=== PATIENT | female | born 1970 | race American Indian/Alaskan Native ===

== ENCOUNTER 2016-10-11 16:58 | Inpatient (IN) | payer OTHER ==
[2016-10-11 18:29] LABS: Basophils % (Auto) 0.8 % (0.0-1.8); Eosinophils % (Auto) 2.5 % (0.0-4.3); Mean Corpuscular HGB Conc 32 % (30-34); Mean Corpuscular Volume 80 fl (79-97); Platelet Count 319 K/mm3 (140-440); Red Blood Count 5.11 M/mm3 (3.65-5.03); Red Cell Distribution Width 15.7 % (13.2-15.2); White Blood Count 7.9 K/mm3 (4.5-11.0)
[2016-10-11 18:31] LABS: Mean Corpuscular Hemoglobin 26 pg (28-32)
[2016-10-11 18:36] LABS: Anion Gap 9 mmol/L; BUN/Creatinine Ratio 13.75; Blood Urea Nitrogen 11 mg/dL (7-17); Calcium 8.8 mg/dL (8.4-10.2); Carbon Dioxide 35 mmol/L (22-30); Chloride 98.6 mmol/L (98-107); Glucose 101 mg/dL (65-100); Potassium 4.4 mmol/L (3.6-5.0); Sodium 138 mmol/L (137-145)
[2016-10-11 18:57] LABS: Cholesterol 154 mg/dL (50-199); HDL Cholesterol 44 mg/dL (40-59); LDL Cholesterol,Direct 85 mg/dL (50-130); Triglycerides 125 mg/dL (2-149)
[2016-10-11] MEDS ORDERED: BABY ASPIRIN PO ONE (22:13)
--- NOTE | 2016-10-11 22:15 | Emergency Department Report ---
ED Chest Pain HPI - General Chief Complaint: Chest Pain Stated Complaint: CHEST PAIN /RT ARM NUMB Time Seen by Provider: 10/11/16 21:53 Source: patient Mode of arrival: Ambulatory Limitations: No Limitations - History of Present Illness Initial Comments: 46-year-old female presents to the emergency department complaining of chest pain. Patient states that 2 days ago she had some heaviness in her chest and could feel her heart beating in her throat. This resolved spontaneously. She states the symptoms returned last night at approximately 2 AM and were worse. She states that her right arm was feeling numb. She reports some nausea and diaphoresis. At this time, she is continuing to complain of tightness in her chest, which she states is similar to her asthma. There are no other complaints. MD Complaint: chest pain -: Gradual, days(s) (2) Onset: during rest Pain Location: substernal Pain Radiation: none Severity: moderate Severity scale (0 -10): 5 Quality: heaviness Consistency: intermittent Improves With: nothing Worsens With: nothing re: nausea, diaphoresis, dyspnea Treatments Prior to Arrival: none Aspirin use within the Past 7 Days: (0) No - Related Data Previous Rx's Medication Instructions Recorded Last Taken Type Benzonatate [Tessalon Perles] 200 mg PO Q8HR PRN #15 capsule 10/28/14 Unknown Rx Fluticasone [Flonase] 1 spray NS QDAY #1 bottle 10/28/14 08/21/15 Rx ALBUTEROL Inhaler [ProAir HFA 2 puff IH QID PRN #1 inha 08/21/15 Unknown Rx Inhaler] Albuterol *Only Ed* [Proventil 2.5 mg IH Q4H PRN #1 box 08/21/15 Unknown Rx 0.5% NEBS] predniSONE [Deltasone] 40 mg PO QDAY #10 tab 08/21/15 Unknown Rx Allergies Allergy/AdvReac Type Severity Reaction Status Date / Time lactose Allergy Hives Verified 10/11/16 17:44 shellfish derived Allergy Hives Verified 10/11/16 17:44 Heart Score - HEART Score History: Moderately suspicious EKG: Non-specific Age: 45-65 Risk factors: > 3 risk factors or hx of atherosclerotic disease Troponin: > 3x normal limit HEART Score: 7 ED Review of Systems ROS: Stated complaint: CHEST PAIN /RT ARM NUMB Other details as noted in HPI Comment: All other systems reviewed and negative Constitutional: diaphoresis Respiratory: shortness of breath Cardiovascular: chest pain Gastrointestinal: nausea ED Past Medical Hx - Past Medical History Previous Medical History?: Yes Hx Hypertension: Yes (NO MEDICATIONS NOW) Hx Diabetes: Yes (BORDERLINE) Hx Asthma: Yes Additional medical history: Bronchitis - Surgical History Past Surgical History?: Yes Additional Surgical History: PARTIAL HYSTERECTOMY. CYST REMOVED LEFT WRIST - Family History Family history: CAD/VA, diabetes, hypertension - Social History Smoking Status: Never Smoker Substance Use Type: Alcohol - Medications Home Medications: Home Medications Medication Instructions Recorded Confirmed Last Taken Type Benzonatate [Tessalon Perles] 200 mg PO Q8HR PRN #15 capsule 10/28/14 08/21/15 Unknown Rx Fluticasone [Flonase] 1 spray NS QDAY #1 bottle 10/28/14 08/21/15 08/21/15 Rx ALBUTEROL Inhaler [ProAir HFA 2 puff IH QID PRN #1 inha 08/21/15 Unknown Rx Inhaler] Albuterol *Only Ed* [Proventil 2.5 mg IH Q4H PRN #1 box 08/21/15 Unknown Rx 0.5% NEBS] predniSONE [Deltasone] 40 mg PO QDAY #10 tab 08/21/15 Unknown Rx ED Physical Exam - General Limitations: No Limitations General appearance: alert, in no apparent distress - Head Head exam: Present: atraumatic, normocephalic - Eye Eye exam: Present: normal appearance, PERRL, EOMI - ENT ENT exam: Present: normal exam, normal orophraynx, mucous membranes moist - Neck Neck exam: Present: normal inspection, full ROM. Absent: tenderness - Respiratory Respiratory exam: Present: normal lung sounds bilaterally. Absent: respiratory distress - Cardiovascular Cardiovascular Exam: Present: regular rate, normal rhythm, normal heart sounds - GI/Abdominal GI/Abdominal exam: Present: soft, normal bowel sounds. Absent: distended, tenderness - Extremities Exam Extremities exam: Present: normal inspection, full ROM. Absent: tenderness - Back Exam Back exam: Present: normal inspection, full ROM. Absent: tenderness - Neurological Exam Neurological exam: Present: alert, oriented X3. Absent: motor sensory deficit - Skin Skin exam: Present: warm, dry, intact ED Course Vital Signs 10/11/16 17:34 Temperature 98.0 F Pulse Rate 62 Respiratory 17 Rate Blood Pressure 153/93 O2 Sat by Pulse 100 Oximetry ED Medical Decision Making - Lab Data Result diagrams: 10/11/16 18:01 10/11/16 18:01 - EKG Data -: EKG Interpreted by Me EKG shows normal: sinus rhythm, axis, intervals, QRS complexes Rate: normal - EKG Data When compared to previous EKG there are: previous EKG unavailable Interpretation: other (T-wave inversions in inferior leads) - Medical Decision Making Lab results reviewed and discussed with the patient. Patient has a troponin that is 10 times the upper limit of normal. I have spoken with Dr. Ran Bailey, cardiology. Patient has been given aspirin. She will be started on IV heparin. Patient is to be admitted by the hospitalist. - Differential Diagnosis ACS, Chest wall pain, GERD Critical care attestation.: If time is entered above; I have spent that time in minutes in the direct care of this critically ill patient, excluding procedure time. ED Disposition Clinical Impression: NSTEMI (non-ST elevated myocardial infarction) Disposition: 09 OP ADMIT IP TO THIS HOSP Is pt being admited?: Yes Condition: Stable Referrals: PRIMARY CARE, [Primary Care Provider] - 3-5 Days Time of Disposition: 22:23
[2016-10-11] MEDS ORDERED: HEPARIN 10,000 UNITS/10 ML IV ONE (22:20)
[2016-10-11] MEDS ORDERED: HEPARIN/ 0.45% NACL-25,000 UNIT/500 ML 25,000 UNIT/500 ML BAG IV SCH (23:00)
[2016-10-11 23:22] LABS: INR 1.23 (0.87-1.13)
[2016-10-11] MEDS ORDERED: MORPHINE IV PRN (23:23)
[2016-10-11] MEDS ORDERED: TYLENOL PO PRN (23:24)
[2016-10-11] MEDS ORDERED: ZOFRAN IV PRN (23:24)
[2016-10-12 00:23] LABS: Partial Thromboplastin Time > 240.0 Sec. (24.2-36.6)
--- NOTE | 2016-10-12 05:26 | History and Physical Report ---
History of Present Illness Date of examination: 10/11/16 Date of admission: 10/11/16 22:24 Chief complaint: Chief complaint is chest pain History of present illness: History of present illness, patient is a 46-year-old female who states she's been having sharp chest pain in the substernal and precordial area going on for few days but became worse in the last 24 hours prior to presentation, patient said the pain radiates to the left hour and was associated with shortness of breath, diaphoresis, nausea but no vomiting. Pain was relieved with pain medication and nitroglycerin, there was no history of dizziness no history of cough fever or chills Past History Past Medical History: diabetes, hypertension, other (ASTHMA,BRONCHITIS) Past Surgical History: hysterectomy, Other (CYST REMOVAL LEFT WRIST) Family history: CAD, diabetes, hypertension Medications and Allergies Allergies Allergy/AdvReac Type Severity Reaction Status Date / Time lactose Allergy Hives Verified 10/11/16 17:44 shellfish derived Allergy Hives Verified 10/11/16 17:44 Home Medications Medication Instructions Recorded Confirmed Last Taken Type Benzonatate [Tessalon Perles] 200 mg PO Q8HR PRN #15 capsule 10/28/14 10/12/16 10/11/16 Rx Fluticasone [Flonase] 1 spray NS QDAY #1 bottle 10/28/14 10/12/16 10/11/16 Rx ALBUTEROL Inhaler [ProAir HFA 2 puff IH QID PRN #1 inha 08/21/15 10/12/16 Rx Inhaler] Albuterol *Only Ed* [Proventil 2.5 mg IH Q4H PRN #1 box 08/21/15 10/12/1610/11 Rx 0.5% NEBS] predniSONE [Deltasone] 40 mg PO QDAY #10 tab 08/21/15 10/12/16 10/11/16 Rx Active Meds: Active Medications Acetaminophen (Tylenol) 650 mg PO Q4H PRN PRN Reason: For Pain/Fever/Headache Aspirin (Aspirin) 325 mg PO QDAY ANASTASIA Heparin Sodium/Sodium Chloride (Heparin/ 0.45% Nacl-25,000 Unit/500 Ml) 25,000 unit in 500 mls @ 20 mls/hr IV TITRATE ANASTASIA; 1,000 UNITS/HR PRN Reason: Protocol Last Admin: 10/11/16 22:54 Dose: 1,000 units/hr, 20 mls/hr Morphine Sulfate (Morphine) 2 mg IV Q3H PRN PRN Reason: Pain, Moderate (4-6) Nitroglycerin (Nitro-Bid 2%) 1 inch TP QIDNTG [facility] PRN Reason: Protocol Ondansetron HCl (Zofran) 4 mg IV Q8H PRN PRN Reason: Nausea And Vomiting Pneumococcal Polyvalent Vaccine (Pneumovax 23) 0.5 ml IM .ONCE ONE Stop: 10/12/16 12:01 Review of Systems Constitutional: no weight loss, no weight gain, no fever, no chills, no sweats, no weakness, no poor appetite Eyes: bilateral: other (NO BILATERAL EYE SYMPTOMS) Ears, nose, mouth and throat: no ear pain, no ear discharge, no tinnitis, no decreased hearing, no nose pain, no nasal congestion, no nasal discharge, no sinus pressure, no sinus pain, no bleeding gums, no dental pain, no mouth pain, no dysphagia, no hoarseness, no sore throat, no swelling in mouth, no swelling in throat, no post-nasal drip, no headache, no vertigo, no pain front of neck, no neck fullness/pressure Breasts: deferred Cardiovascular: chest pain, shortness of breath, high blood pressure, no orthopnea, no palpitations, no rapid/irregular heart beat, no edema, no syncope , no lightheadedness, no dyspnea on exertion, no paroxysmal nocturnal dyspnea, no claudication, no leg edema, no decreased exercise tolerance Respiratory: shortness of breath, no cough, no cough with sputum, no excessive sputum, no hemoptysis, no congestion, no wheezing, no pleurisy, no pain on inspiration, no sleep apnea, no respiratory infections Gastrointestinal: nausea, no vomiting, no diarrhea, no constipation, no change in bowel habits, no melena, no hematochezia, no loss of appetite, no early satiety, no heartburn, no jaundice, no dyspepsia/bloating, no early satiety Genitourinary Female: no dyspareunia, no pelvic pain, no flank pain, no menorrhagia, no dysuria, no urinary frequency, no urgency, no stress incontinence, no post void dribbling, no incomplete emptying, no urge incontinence, no mixed incontinence, no vaginal itching, no vaginal discharge, no vaginal odor, no abnormal vaginal bleeding, no genital sores, no vaginal dryness, no decreased libido, no mood problems, no Menstruation: no postmenopausal Rectal: no pain, no incontinence, no hemorrhoids, no flatulence Musculoskeletal: no neck stiffness, no neck pain, no low back pain, no shooting leg pain, no morning stiffness, no muscle weakness, no muscle cramps, no fractures, no loss of height, no prior amputations Integumentary: no rash, no pruritis, no redness, no sores, no wounds, no bullae , no lesions, no darkening of skin, no depigmentation, no acne, no dryness, no change in hair/nails, no brittle nails, no striae, no hirsutism, no foot/leg ulcers, no onychomycosis Neurological: no head injury, no transient paralysis, no paralysis, no parathesias, no numbness, no tingling, no seizures, no syncope, no ataxia, no headaches, no migraines, no convulsions, no aphasia, no change in speech, no change in mentation, no confusion, no memory loss, no motor disturbance, no sensory deficit, no double vision, no loss of vision, no hearing difficulties, no burning pain Psychiatric: no memory loss, no sleep disturbances, no insomnia, no hypersomnia , no change in appetite, no change in libido, no suicidal ideation, no disorientation, no depression, no hopelessness, no anhedonia, no anxiety attacks , no difficulties concentrating, no confusion, no irritability Endocrine: high blood sugars, no cold intolerance, no heat intolerance, no polyphagia, no excessive thirst, no polydipsia, no polyuria, no excessive sweating, no thyroid mass Hematologic/Lymphatic: no easy bruising, no easy bleeding, no lymphadenopathy, no lymphedema, no thrombophilia Allergic/Immunologic: no urticaria, no allergic rhinitis, no persistent infections, no anaphylaxis, no gluten intolerance, no seasonal allergies Exam - Constitutional Vitals: Temp Pulse Resp BP Pulse Ox 98.0 F 64 20 127/99 100 10/12/16 00:06 10/12/16 00:06 10/12/16 01:04 10/12/16 00:06 10/12/16 00:06 General appearance: Present: no acute distress - EENT Eyes: Present: PERRL, EOM intact. Absent: scleral icterus, miosis ENT: hearing intact, clear oral mucosa, no oropharyngeal erythema, no edentulous - Neck Neck: Present: supple, normal ROM. Absent: enlarged thyroid, carotid bruits - Respiratory Respiratory effort: normal - Cardiovascular Rhythm: regular Heart Sounds: Present: S1 & S2. Absent: gallop, systolic murmur, diastolic murmur, rub, click - Extremities Extremities: no ischemia, No edema Peripheral Pulses: within normal limits - Abdominal General gastrointestinal: Present: soft, non-tender, non-distended. Absent: tender, distended, rigid, absent bowel sounds, splenomegaly Female genitourinary: Present: deferred - Rectal Rectal Exam: deferred - Integumentary Integumentary: Present: clear, warm, dry, normal turgor. Absent: erythema, jaundice, clammy - Musculoskeletal Musculoskeletal: strength equal bilaterally - Psychiatric Psychiatric: appropriate mood/affect - Neurologic Neurologic: CNII-XII intact Results - Labs CBC & Chem 7: 10/11/16 18:01 10/11/16 18:01 Labs: Laboratory Last Values WBC 7.9 K/mm3 (4.5-11.0) 10/11/16 18:01 RBC 5.11 M/mm3 (3.65-5.03) H 10/11/16 18:01 Hgb 13.0 gm/dl (10.1-14.3) 10/11/16 18:01 Hct 41.0 % (30.3-42.9) 10/11/16 18:01 MCV 80 fl (79-97) 10/11/16 18:01 MCH 26 pg (28-32) L 10/11/16 18:01 MCHC 32 % (30-34) 10/11/16 18:01 RDW 15.7 % (13.2-15.2) H 10/11/16 18:01 Plt Count 319 K/mm3 (140-440) 10/11/16 18:01 Lymph % (Auto) 26.9 % (13.4-35.0) 10/11/16 18:01 [place] % (Auto) 7.3 % (0.0-7.3) 10/11/16 18:01 Eos % (Auto) 2.5 % (0.0-4.3) 10/11/16 18:01 Baso % (Auto) 0.8 % (0.0-1.8) 10/11/16 18:01 Lymph # 2.1 K/mm3 (1.2-5.4) 10/11/16 18:01 [place] # 0.6 K/mm3 (0.0-0.8) 10/11/16 18:01 Eos # 0.2 K/mm3 (0.0-0.4) 10/11/16 18:01 Baso # 0.1 K/mm3 (0.0-0.1) 10/11/16 18:01 Seg Neutrophils % 62.5 % (40.0-70.0) 10/11/16 18:01 Seg Neutrophils # 5.0 K/mm3 (1.8-7.7) 10/11/16 18:01 PT 15.4 Sec. (12.2-14.9) H 10/11/16 22:51 INR 1.23 (0.87-1.13) H 10/11/16 22:51 APTT > 240.0 Sec. (24.2-36.6) H* 10/11/16 22:51 Heparin Anti-Xa Level 0.28 U.I./ml (0.3-0.7) L 10/12/16 04:20 Sodium 138 mmol/L (137-145) 10/11/16 18:01 Potassium 4.4 mmol/L (3.6-5.0) 10/11/16 18:01 Chloride 98.6 mmol/L (98-107) 10/11/16 18:01 Carbon Dioxide 35 mmol/L (22-30) H 10/11/16 18:01 Anion Gap 9 mmol/L 10/11/16 18:01 BUN 11 mg/dL (7-17) 10/11/16 18:01 Creatinine 0.8 mg/dL (0.7-1.2) 10/11/16 18:01 Estimated GFR > 60 ml/min 10/11/16 18:01 BUN/Creatinine Ratio 13.75 % 10/11/16 18:01 Glucose 101 mg/dL (65-100) H 10/11/16 18:01 Calcium 8.8 mg/dL (8.4-10.2) 10/11/16 18:01 Troponin T 0.341 ng/mL (0.00-0.029) H* D 10/11/16 22:51 Triglycerides 125 mg/dL (2-149) 10/11/16 18:01 Cholesterol 154 mg/dL (50-199) 10/11/16 18:01 LDL Cholesterol Direct 85 mg/dL (50-130) 10/11/16 18:01 HDL Cholesterol 44 mg/dL (40-59) 10/11/16 18:01 Cholesterol/HDL Ratio 3.50 % 10/11/16 18:01 Assessment and Plan - Patient Problems (1) Diabetes Current Visit: Yes Status: Acute Qualifiers: Diabetes mellitus type: D Diabetes mellitus complication status: D Diabetes mellitus complication detail: D Diabetic retinopathy severity: D Proliferative retinopathy type: P Diabetes mellitus macular edema: D Diabetes mellitus long-term insulin use: D Laterality: L Chronic kidney disease stage: C (2) NSTEMI (non-ST elevated myocardial infarction) Current Visit: Yes Status: Acute Plan to address problem: Patient will be admitted to medical floor on telemetry I will have cardiac enzyme troponin checked 6 hours after the last level, patient will continue IV heparin started in the emergency room and will also continue cardiology consult with Dr. Bailey as requested by the emergency room doctor. Patient will be on Nitropaste one inch to anterior chest wall every 6 hours and will be on IV morphine 2 mg every 3 hours as needed for pain and IV Zofran 4 mg every 6 hours for nausea vomiting, patient will also be on Tylenol by mouth 650 mg every 4 hours for fever and headache and will be on oxygen by nasal cannula at a rate of 2 L/m
[2016-10-12] MEDS: NITRO-BID 2% TP SCH ×2 (08:10→12:12)
[2016-10-12] MEDS ORDERED: ASPIRIN PO SCH (10:00)
--- NOTE | 2016-10-12 10:27 | Consultation ---
History of Present Illness Consult date: 10/12/16 Requesting physician: ERAN SURESH Consult reason: abnormal cardiac enzymes History of present illness: The patient is a 46 YO female with a past medical history significant for HTN and asthma. She is previously unknown to our practice. Her P[facility] is with [facility]. She presented with c/o palpitations, "heart pounding", and chest pain since Saturday AM. Her symptoms have been intermittent since Saturday with no clear precipitating, aggravating, or alleviating factors. She describer her chest pain as a left-sided sharp pain which is nonexertional and nonradiating. The pain is sometimes aggravated by palpation of the chest wall and sometimes associated with mild SOB. She denies any fever, chills, cough, n/v, diaphoresis or syncope. She does admit to one episode of dizziness while bending over at work on Saturday. On evaluation, she reports that her chest pain has nearly resolved. She reports a history of HTN but reports that her PCP took her off of her anti-hypertensive regimen 4 months ago after her BP was noted to be controlled. Past History Past Medical History: hypertension, other (asthma) Past Surgical History: hysterectomy (partial), Other (CYST REMOVAL LEFT WRIST) Family history: diabetes, hypertension, other (sarcoidosis ) Medications and Allergies Allergies Allergy/AdvReac Type Severity Reaction Status Date / Time lactose Allergy Hives Verified 10/11/16 17:44 shellfish derived Allergy Hives Verified 10/11/16 17:44 Home Medications Medication Instructions Recorded Confirmed Last Taken Type Benzonatate [Tessalon Perles] 200 mg PO Q8HR PRN #15 capsule 10/28/14 10/12/16 10/11/16 Rx Fluticasone [Flonase] 1 spray NS QDAY #1 bottle 10/28/14 10/12/16 10/11/16 Rx ALBUTEROL Inhaler [ProAir HFA 2 puff IH QID PRN #1 inha 08/21/15 10/12/16 Rx Inhaler] Albuterol *Only Ed* [Proventil 2.5 mg IH Q4H PRN #1 box 08/21/15 10/12/1610/11 Rx 0.5% NEBS] predniSONE [Deltasone] 40 mg PO QDAY #10 tab 05/10/12/16 10/11/16 Rx Active Meds: Active Medications Acetaminophen (Tylenol) 650 mg PO Q4H PRN PRN Reason: For Pain/Fever/Headache Aspirin (Aspirin) 325 mg PO QDAY ANASTASIA Heparin Sodium/Sodium Chloride (Heparin/ 0.45% Nacl-25,000 Unit/500 Ml) 25,000 unit in 500 mls @ 20 mls/hr IV TITRATE ANASTASIA; 1,000 UNITS/HR PRN Reason: Protocol Last Titration: 10/12/16 05:25 Dose: 1,100 units/hr, 22 mls/hr Morphine Sulfate (Morphine) 2 mg IV Q3H PRN PRN Reason: Pain, Moderate (4-6) Nitroglycerin (Nitro-Bid 2%) 1 inch TP QIDNTG ANASTASIA PRN Reason: Protocol Last Admin: 10/12/16 08:10 Dose: Not Given Ondansetron HCl (Zofran) 4 mg IV Q8H PRN PRN Reason: Nausea And Vomiting Pneumococcal Polyvalent Vaccine (Pneumovax 23) 0.5 ml IM .ONCE ONE Stop: 10/12/16 12:01 Review of Systems Constitutional: no weight loss, no weight gain, no fever, no chills, no sweats Ears, nose, mouth and throat: no ear pain, no nose pain, no sinus pressure, no sinus pain Cardiovascular: chest pain, palpitations, rapid/irregular heart beat, lightheadedness, shortness of breath, no orthopnea, no syncope, no dyspnea on exertion, no paroxysmal nocturnal dyspnea, no leg edema Respiratory: shortness of breath, no cough, no dyspnea on exertion, no congestion, no wheezing, no pain on inspiration Gastrointestinal: no abdominal pain, no nausea, no vomiting, no diarrhea, no constipation, no change in bowel habits Genitourinary Female: no pelvic pain, no flank pain, no dysuria, no urinary frequency, no urgency Musculoskeletal: no neck stiffness, no neck pain, no shooting arm pain, no arm numbness/tingling, no low back pain, no shooting leg pain, no leg numbness/ tingling, no redness of joints Integumentary: no rash, no pruritis, no redness, no sores, no wounds Neurological: no head injury, no paralysis, no weakness, no parathesias, no numbness, no tingling, no seizures, no syncope Psychiatric: no anxiety Endocrine: no cold intolerance, no heat intolerance Hematologic/Lymphatic: no easy bruising, no easy bleeding, no lymphadenopathy Allergic/Immunologic: no urticaria, no wheezing, no persistent infections Physical Examination Vital Signs Temp Pulse Resp BP Pulse Ox 98.0 F 62 17 153/93 100 10/11/16 17:34 10/11/16 17:34 10/11/16 17:34 10/11/16 17:34 10/11/16 17:34 General appearance: no acute distress HEENT: Positive: PERRL, Normocephaly, Mucus Membranes Moist Neck: Positive: neck supple, trachea midline Cardiac: Positive: Reg Rate and Rhythm, S1/S2 Lungs: Positive: Normal Exam, clear to auscultation, Normal Breath Sounds Neuro: Positive: Grossly Intact, Cranial Nerve 2-12 Intact Abdomen: Positive: Unremarkable, Soft, Active Bowel Sounds. Negative: Tender Skin: Positive: Clear. Negative: Rash, Wound Musculoskeletal: No Fluid Collection, No Pain, Normal Range of Motion Extremities: Absent: edema Results 10/11/16 18:01 10/11/16 18:01 Coagulation 10/11/16 Range/Units 22:51 PT 15.4 H (12.2-14.9) Sec. INR 1.23 H (0.87-1.13) APTT > 240.0 H* (24.2-36.6) Sec. - Imaging and Cardiology Echo: pending EKG: report reviewed, image reviewed EKG interpretations - Telemetry EKG Rhythm: Sinus Rhythm - EKG Sinus rhythms and dysrhythmias: sinus rhythm Repolarization changes or abnormalities: nonspecific abnormality, ST segment, and/or T wave Assessment and Plan Assessment: Chest pain, atypical - ECG with NAF NSTEMI type II Palpitations - no arrhythmias noted on tele thus far HTN Asthma Obesity Plan: Cont heparin gtt and ASA 325. Obtain echo. Cont to trend Zee. Obtain DDimer. Obtain CXR. Obtain thyroid panel in AM. Repeat EKG in AM. Cont tele. Plan for lexiscan MPI stress test in AM. NPO after MN. Assessment and plan reviewed with pt at bedside. The patient has been seen in conjunction with Dr. Jones who agrees with the assessment and plan of care.
--- NOTE | 2016-10-12 11:06 | XRay Report ---
CHEST ONE VIEW INDICATION: Asthma. COMPARISON: None similar at this institution. FINDINGS: Portable, single, frontal chest radiograph demonstrates normal cardiomediastinal silhouette. Clear lungs. Unremarkable bones. Extrinsic EKG leads. CONCLUSION: No acute disease in the chest. Thank you for the opportunity to participate in this patient's care.
--- NOTE | 2016-10-12 11:09 | Progress Note ---
Hospitalist Physical - Constitutional Vitals: Temp Pulse Resp BP Pulse Ox 98.0 F 99 H 16 129/77 99 10/12/16 10:50 10/12/16 10:50 10/12/16 10:50 10/12/16 10:50 10/12/16 10:50 General appearance: Present: no acute distress Results - Labs CBC & Chem 7: 10/11/16 18:01 10/11/16 18:01 Labs: Laboratory Last Values WBC 7.9 K/mm3 (4.5-11.0) 10/11/16 18:01 RBC 5.11 M/mm3 (3.65-5.03) H 10/11/16 18:01 Hgb 13.0 gm/dl (10.1-14.3) 10/11/16 18:01 Hct 41.0 % (30.3-42.9) 10/11/16 18:01 MCV 80 fl (79-97) 10/11/16 18:01 MCH 26 pg (28-32) L 10/11/16 18:01 MCHC 32 % (30-34) 10/11/16 18:01 RDW 15.7 % (13.2-15.2) H 10/11/16 18:01 Plt Count 319 K/mm3 (140-440) 10/11/16 18:01 Lymph % (Auto) 26.9 % (13.4-35.0) 10/11/16 18:01 [place] % (Auto) 7.3 % (0.0-7.3) 10/11/16 18:01 Eos % (Auto) 2.5 % (0.0-4.3) 10/11/16 18:01 Baso % (Auto) 0.8 % (0.0-1.8) 10/11/16 18:01 Lymph # 2.1 K/mm3 (1.2-5.4) 10/11/16 18:01 [place] # 0.6 K/mm3 (0.0-0.8) 10/11/16 18:01 Eos # 0.2 K/mm3 (0.0-0.4) 10/11/16 18:01 Baso # 0.1 K/mm3 (0.0-0.1) 10/11/16 18:01 Seg Neutrophils % 62.5 % (40.0-70.0) 10/11/16 18:01 Seg Neutrophils # 5.0 K/mm3 (1.8-7.7) 10/11/16 18:01 PT 15.4 Sec. (12.2-14.9) H 10/11/16 22:51 INR 1.23 (0.87-1.13) H 10/11/16 22:51 APTT > 240.0 Sec. (24.2-36.6) H* 10/11/16 22:51 D-Dimer 145.19 ng/mlDDU (0-234) 10/12/16 09:54 Heparin Anti-Xa Level 0.28 U.I./ml (0.3-0.7) L 10/12/16 04:20 Sodium 138 mmol/L (137-145) 10/11/16 18:01 Potassium 4.4 mmol/L (3.6-5.0) 10/11/16 18:01 Chloride 98.6 mmol/L (98-107) 10/11/16 18:01 Carbon Dioxide 35 mmol/L (22-30) H 10/11/16 18:01 Anion Gap 9 mmol/L 10/11/16 18:01 BUN 11 mg/dL (7-17) 10/11/16 18:01 Creatinine 0.8 mg/dL (0.7-1.2) 10/11/16 18:01 Estimated GFR > 60 ml/min 10/11/16 18:01 BUN/Creatinine Ratio 13.75 % 10/11/16 18:01 Glucose 101 mg/dL (65-100) H 10/11/16 18:01 Calcium 8.8 mg/dL (8.4-10.2) 10/11/16 18:01 Total Creatine Kinase 455 units/L (30-135) H 10/12/16 09:54 CK-MB (CK-2) 18.0 ng/mL (0.0-4.0) H 10/12/16 09:54 CK-MB (CK-2) Rel Index 3.9 (0-4) 10/12/16 09:54 Troponin T 0.234 ng/mL (0.00-0.029) H* 10/12/16 09:54 Triglycerides 125 mg/dL (2-149) 10/11/16 18: Cholesterol 154 mg/dL (50-199) 10/11/16 18:01 LDL Cholesterol Direct 85 mg/dL (50-130) 10/11/16 18: HDL Cholesterol 44 mg/dL (40-59) 10/11/16 18: Cholesterol/HDL Ratio 3.50 % 10/11/16 18:01
[2016-10-12] MEDS ORDERED: LEXISCAN IV ONE ×2 (11:50→11:54)
[2016-10-12] MEDS ORDERED: PNEUMOVAX 23 IM ONE (12:00)
--- NOTE | 2016-10-12 12:12 | Admit Criteria Form ---
Admission Criteria Documentation: MYOCARDIAL INFARCTION Clinical Indications for Admission to Inpatient Care (Place 'X' for any and all applicable criteria): Admission is indicated for 1 or more of the following (1)(2)(3)(4): [ X]I. Acute FL [ ]II. Contraindications and/or Inappropriate clinical situations for Observational Care in patients with Myocardial Infarction, when ANY ONE of the following is required: [ ]a) Patient with High risk of cardiac embolism (e.g, patients with previous cardiac embolism, LVEF < 40%, age >75 and patients with prosthetic valve) 18 [ ]b) Patient with Moderate risk including DM patient, CAD and patient aged 65-75 18 [ ]c) Patient with any change in cardiac biomarker especially troponin should be managed as high risk in an inpatient setting 19 [ ]d) Physician judgement irrespective of ECG and other diagnostic findings 20 [ ]III.General contraindications and/or Inappropriate clinical situations for Observational Care in patients with Myocardial Infarction, when ANY ONE of the following is required: [ ]a) Prediction of prolongation of LOS based on ANY ONE of the following may be considered as a contraindication for observational care 2, 3, 4, 5, 6, 7, 8, 9, 10, 11 [ ]i) Age > 65 yrs. [ ]ii) Patient arriving by ambulance [ ]iii) Patient with high acuity [ ]iv) Patient requiring vital sign monitoring [ ]v) Patient on IV medication [ ]b) Systolic blood pressures greater than or equal to 180mmHg 3,12 [ ]c) Patient with altered mental status including delirium and other alteration of consciousness, (3) [ ]d) Patient whose discharge disposition will be to a [facility] home or rehabilitation home should not be managed in Emergency Department Observation Unit. CMS rule requires 3 days hospital stay before such placement. 3,13 [ ]e) Patient with failure to thrive due to broad array of etiologies 3 ,16,17 [ ]f) Inability to ambulate 3,14 Extended stay beyond goal length of stay may be needed for (1)(18)(20)(24)(25): [ ]a) Hemodynamic instability, persisting symptoms after intensive medical management, or recurring severe, prolonged symptoms [ ]b) Intravascular procedural complications such as acute vessel closure, stent thrombosis, stent malposition, or vessel dissection (26)(27)(28) [ ]c) Extravascular procedural complications such as retroperitoneal hematoma , pericardial effusion, or cardiac tamponade [ ]d) Entry site complications causing bleeding, hematoma or distal ischemia and requiring ongoing monitoring, surgical repair or surgical thrombectomy. Dangerous arrhythmia [ ]e) Complicated percutaneous coronary intervention (e.g., unsuccessful percutaneous coronary intervention or percutaneous coronary intervention of non- viejas vessel) [ ]f) Urgent or emergent surgery for complications of FL (e.g., ventricular rupture, valvular insufficiency) [ ]g) Surgical revascularization via coronary artery bypass graft [ ]h) Heart failure (e.g., pulmonary edema) [ ]i) Unstable pulmonary comorbidities, including COPD or pneumonia (31) [ ]j) Acute renal failure The original [employer] content created by [email or web address] has been revised. The portions of the content which have been revised are identified through the use of italic text or in bold, and [email or web address] has neither reviewed nor approved the modified material. All other unmodified content is copyright [email or web address] Please see references footnoted in the original [facility] edition 2016 Admission Criteria Met: Yes
[2016-10-12 12:42] VITALS: BP 128/81
--- NOTE | 2016-10-12 13:57 | Event Note ---
Date: 10/12/16 Stress mpi: 1. no evidence of a significant reversible perfusion defect 2. EF 63% Currently stable cardiac status. Initiate lopressor in setting of palpitations. Pt may discharge home from cardiology standpoint. Will plan for echo as OP. Follow up in our [place] office with Dr. Vidal on 10/18/2016 @ 10:30AM. Teena YO NP / DR. VIDAL
--- NOTE | 2016-10-12 14:43 | Discharge Summary ---
Providers - Providers Date of Admission: 10/11/16 22:24 Date of discharge: 10/12/16 Attending physician: LISA ANTHONY Primary care physician: SEJAL JACK MD Hospitalization Condition: Good Hospital course: Patient is 46 yo with diabetes. She presents with chest pain. She had elevated troponin of 0.297. She was given Aspirin, started on Heparin and admitted to r/ o acute coronary syndrome. Troponin further increased. Cardiology was consulted and she was evaluated. Stress test was done and did not show any reversible ischemia. D-dimer was done was negative. Patient was then discharged home. Final diagnosis was NSTEMI type 2. She was discharged to follow as outpatient. Echocardiogram to be done as outpatient. Disposition: DC-01 TO HOME OR SELFCARE - Discharge Diagnoses (1) NSTEMI (non-ST elevated myocardial infarction) Status: Acute Comment: Type 2 (2) Diabetes mellitus type 2 in obese Status: Chronic (3) Morbid obesity with BMI of 45.0-49.9, adult Status: Chronic Core Measure Documentation - Palliative Care Palliative Care/ Comfort Measures: Not Applicable - Core Measures Any of the following diagnoses?: acute MS - Acute MS Discharge Requirements Aspirin at discharge: Yes SHARON/ARB for LVSD if EF <40%: Not Applicable (Echo as outpatient) Beta denise at discharge: Yes Statin for LDL = or >100 mg/dl on DC: Not Applicable Exam - Constitutional Vitals: Temp Pulse Resp BP Pulse Ox 98.0 F 86 16 128/81 99 10/12/16 10:50 10/12/16 12:20 10/12/16 10:50 10/12/16 12:20 10/12/16 10:50 General appearance: Present: no acute distress - EENT Eyes: Present: PERRL - Neck Neck: Present: supple - Respiratory Respiratory: bilateral: CTA - Cardiovascular Rhythm: regular Heart Sounds: Present: S1 & S2 Plan Diet: low fat, low cholesterol, low salt, diabetic Additional Instructions: 1.Follow up with PCP in 1 week. 2.Follow up with Dr. JonesCardiologyon 10/18/16. 3.Echocardiogram as outpatient with Dr. Jones. 4.No strenous activity until cleared by Cardiology. Follow up with: PRIMARY CARE, [Primary Care Provider] - 3-5 Days Forms: Work/School Release Form Prescriptions: Aspirin [Aspirin TAB] 325 mg PO QDAY #30 tablet Metoprolol [Lopressor TAB] 12.5 mg PO BID #30 tablet
[2016-10-12] MEDS ORDERED: LOPRESSOR PO SCH (22:00)
== END 2016-10-12 16:34 | disposition home or self-care (01) | DRG 281 ==
LOC: ED 16:58 → 4A 22:24
PROVIDERS: ADMIT Internal Medicine; ATTEND Internal Medicine
PROC: 3E0234Z Introduction of Serum, Toxoid and Vaccine into Muscle, Percutaneous Approach (ICD-10-PCS; principal; 2016-10-12)
DX: I21.4 Non-ST elevation (NSTEMI) myocardial infarction (principal); Z68.42 Body mass index [BMI] 45.0-49.9, adult; Z91.013 Allergy to seafood; Z91.040 Latex allergy status; I10 Essential (primary) hypertension; E11.9 Type 2 diabetes mellitus without complications; J45.909 Unspecified asthma, uncomplicated; Z90.710 Acquired absence of both cervix and uterus; Z82.49 Family history of ischemic heart disease and other diseases of the circulatory system; Z83.3 Family history of diabetes mellitus; Z23 Encounter for immunization; E66.9 Obesity, unspecified
CPT/HCPCS: 36415; 71010; 78452; 80048; 80061; 82550; 82553; 84484; 85025; 85379; 85520; 85610; 85730; 90732; 93005; 93010; 93017; 96374; A9502; J1644; J2785

== ENCOUNTER 2017-08-30 09:27 | Emergency (ER) | payer OTHER ==
[2017-08-30 09:50] VITALS: BP 166/96
--- NOTE | 2017-08-30 12:04 | Emergency Department Report ---
Minor Respiratory - HPI Chief Complaint: Upper Respiratory Infection Stated Complaint: ASTHMA, SINUS PROBLEMS Time Seen by Provider: 08/30/17 11:36 Duration: 5 Days Pain Location: Nose (congestion) Severity: moderate Minor Respiratory: Yes Rhinorrhea, Yes Able to Tolerate Fluids, Yes Cough, Yes Sick Contacts (grandchildren), No Sore Throat, No Ear Pain, No Hemoptysis, No Chest Pain, No Shortness of Breath, No Fever Other History: This is a 47-year-old -Mosotho female who presents with congestion, cough, and rhinorrhea for 5 days. Patient has a history of asthma and pre-diabetes, and hypertension. Patient reported productive cough with yellowish green mucus started 5 days ago. She is using nebulizer because she ran out of albuterol and Combivent inhalers. She has been out of inhalers for 2 months. Reports asthma is aggravated with seasonal changes. She is currently not taking anything [id number]. Reports feeling nauseous when symptoms started which has resolved. Denies nausea or vomiting, fever, diarrhea , chest pain, and wheezing. ED Review of Systems ROS: Stated complaint: ASTHMA, SINUS PROBLEMS Other details as noted in HPI Constitutional: denies: chills, fever ENT: congestion. denies: ear pain, throat pain, dental pain, hearing loss, epistaxis Respiratory: cough. denies: shortness of breath, wheezing Cardiovascular: denies: chest pain, palpitations, syncope Gastrointestinal: denies: abdominal pain, nausea, vomiting, diarrhea Psychiatric: denies: anxiety, depression ED Past Medical Hx - Past Medical History Hx Hypertension: Yes (NO MEDICATIONS NOW) Hx Diabetes: Yes (BORDERLINE) Hx Asthma: Yes Additional medical history: Bronchitis - Surgical History Additional Surgical History: PARTIAL HYSTERECTOMY. CYST REMOVED LEFT WRIST - Social History Smoking Status: Never Smoker Substance Use Type: None - Medications Home Medications: Home Medications Medication Instructions Recorded Confirmed Last Taken Type Benzonatate [Tessalon Perles] 200 mg PO Q8HR PRN #15 capsule 10/28/14 10/12/16 10/11/16 Rx Fluticasone [Flonase] 1 spray NS QDAY #1 bottle 10/28/14 10/12/16 10/11/16 Rx ALBUTEROL Inhaler [ProAir HFA 2 puff IH QID PRN #1 inha 08/21/15 10/12/16 Rx Inhaler] Albuterol *Only Ed* [Proventil 2.5 mg IH Q4H PRN #1 box 08/21/15 10/12/1610/11 Rx 0.5% NEBS] predniSONE [Deltasone] 40 mg PO QDAY #10 tab 08/21/15 10/12/16 10/11/16 Rx Aspirin [Aspirin TAB] 325 mg PO QDAY #30 tablet 10/12/16 Unknown Rx Metoprolol [Lopressor TAB] 12.5 mg PO BID #30 tablet 10/12/16 Unknown Rx ALBUTEROL Inhaler [ProAir HFA 1 puff IH Q4-6H PRN #1 inha 08/30/17 Unknown Rx Inhaler] Amoxicillin/Potassium Clav 1 each PO BID 5 Days #10 tablet 08/30/17 Unknown Rx [Augmentin 875-125 Tablet] Benzonatate [Tessalon Perle] 100 mg PO TID #30 capsule 08/30/17 Unknown Rx Fluticasone [Flonase] 1 spray NS QDAY #1 bottle 08/30/17 Unknown Rx Ipratropium/Albuter (Nf) 2 puff IH QID #1 inha 08/30/17 Unknown Rx [Combivent (Nf)] Minor Respiratory Exam - Exam General: Vital signs noted. No distress. Alert and acting appropriately. HEENT: Yes Pharyngeal Erythema, Yes Moist Mucous Membranes, Yes Rhinorrhea ( turbinates congested with purulent discharge), Yes Frontal Tenderness, No Pharyngeal Exudates, No Conjuctival Injection, No Maxillary Tenderness Ear: Neither TM Bulge, Neither TM Erythema, Neither EAC Pain, Neither EAC Discharge Neck: Yes Supple, No Adenopathy Lungs: Yes Good Air Exchange, Yes Cough, No Wheezes, No Ronchi, No Stridor, No Labored Respirations, No Retractions, No Use of Accessory Muscles, No Other Abnormal Lung Sounds Heart: Yes Regular, No Murmur Abdomen: Yes Normal Bowel Sounds, No Tenderness, No Peritoneal Signs Skin: No Rash, No Edema Neurologic: Alert and oriented, no deficits. Musculoskeletal: Unremarkable. ED Course Vital Signs 08/30/17 09:46 Temperature 98.0 F Pulse Rate 84 Blood Pressure 166/96 O2 Sat by Pulse 98 Oximetry ED Medical Decision Making - Radiology Data Radiology results: report reviewed Chest 2 views: Compared to 10/12/16. History: Cough chest tightness. Findings: Normal cardiomediastinal silhouette. Trachea is midline. No consolidation, pneumothorax or pleural effusion. Impression: No acute cardiopulmonary findings. - Medical Decision Making This is a 47 y.o. -[place]osoth[place] female presents with congestion and cough for 5 days. History of asthma, prediabetes, and hypertension. Patient examined by me and stable. No distress noted. Vitals stable. Physical findings susceptible of sinusitis. Start children's augmentin, flonase, benzonatate for sinusitis. Refilled albuterol and Combivent inhalers. Discussed plan with patient who agrees with plan. Discharged home. Follow up with PCP in 24-72 hours. Critical care attestation.: If time is entered above; I have spent that time in minutes in the direct care of this critically ill patient, excluding procedure time. ED Disposition Clinical Impression: Acute frontal sinusitis Qualifiers: Recurrence: non-recurrent Qualified Code(s): J01.10 - Acute frontal sinusitis, unspecified Asthma Qualifiers: Asthma severity: mild Asthma persistence: intermittent Asthma complication type : uncomplicated Qualified Code(s): J45.20 - Mild intermittent asthma, uncomplicated Disposition: DC-01 TO HOME OR SELFCARE Is pt being admited?: No Does the pt Need Aspirin: No Condition: Stable Instructions: Asthma (ED), Sinusitis (ED) Additional Instructions: It is important to use inhaler or have active albuterol inhaler and avoiding asthma triggers. Follow up with Primary Care Provider in 24-72 hours. Increase fluid intake and rest. Wash hands frequently. Symptoms should improve in the next 3-7 days. Avoid triggers such as pollen and smoke. Use nasal saline spray to help control congestion and rinse nasal cavity, to improve breathing. Return to ER if fever, SOB, or difficulty breathing after 48 hours of supportive care. Prescriptions: ALBUTEROL Inhaler [ProAir HFA Inhaler] 1 puff IH Q4-6H PRN #1 inha PRN Reason: Shortness Of Breath Amoxicillin/Potassium Clav [Augmentin 875-125 Tablet] 1 each PO BID 5 Days #10 tablet Benzonatate [Tessalon Perle] 100 mg PO TID #30 capsule Fluticasone [Flonase] 1 spray NS QDAY #1 bottle Ipratropium/Albuter (Nf) [Combivent (Nf)] 2 puff QID #1 inha Referrals: [facility] [Provider Group] - 3-5 Days [facility] [Provider Group] - 3-5 Days [facility] [Outside] - 3-5 Days Forms: Work/School Release Form(ED) Time of Disposition: 13:43 Print Language: MALTESE
--- NOTE | 2017-08-30 12:59 | XRay Report ---
Chest 2 views: Compared to 10/12/16. History: Cough chest tightness. Findings: Normal cardiomediastinal silhouette. Trachea is midline. No consolidation, pneumothorax or pleural effusion. Impression: No acute cardiopulmonary findings.
== END 2017-08-30 13:57 | disposition home or self-care (01) ==
LOC: ED 09:27
DX: J01.10 Acute frontal sinusitis, unspecified (principal); J45.20 Mild intermittent asthma, uncomplicated; I10 Essential (primary) hypertension; E11.9 Type 2 diabetes mellitus without complications; Z90.711 Acquired absence of uterus with remaining cervical stump
CPT/HCPCS: 71046

== ENCOUNTER 2018-05-02 11:38 | Emergency (ER) | payer BC, OTHER ==
[2018-05-02] MEDS ORDERED: BABY ASPIRIN PO ONE (12:33)
--- NOTE | 2018-05-02 12:40 | Emergency Department Report ---
ED Chest Pain HPI - General Chief Complaint: Chest Pain Stated Complaint: HBP/CHEST PAIN Time Seen by Provider: 05/02/18 12:22 Source: patient Mode of arrival: Ambulatory Limitations: No Limitations - History of Present Illness Initial Comments: Mrs. Tian is a very pleasant 48 yo female with hx of NSTEMI type 2, HTN, obesity and asthma who presents with elevated blood pressure and palpitations for the past 5 days. She has had nausea and general malaise. SBP's 160's which is elevated for her. Was prescribed Metoprolol after being diagnosed with NSTEMI in 2017. This medication was discontinued. She comes to the ED because she has similar symptoms. Pain free at this time. New PCP Dr. Jenna Au According to electronic medical record, in 2017 when diagnosed with NSTEMI type 2, myocardial perfusion scan did not show any signs of ischemia. Web Merchandiser recommended blood pressure control aspirin and beta denise. MD Complaint: chest pain -: Gradual, days(s) (5) Onset: during rest Pain Location: left chest Pain Radiation: none Severity: mild Severity scale (0 -10): 5 Quality: other (palpitations) Consistency: intermittent Improves With: nothing Worsens With: nothing re: nausea - Related Data Previous Rx's Medication Instructions Recorded Last Taken Type Benzonatate [Tessalon Perles] 200 mg PO Q8HR PRN #15 capsule 10/28/14 10/11/16 Rx Fluticasone [Flonase] 1 spray NS QDAY #1 bottle 10/28/14 10/11/16 Rx ALBUTEROL Inhaler (OR & NICU) 2 puff IH QID PRN #1 inha 08/21/15 10/11/16 Rx [ProAir HFA Inhaler] Albuterol *Only Ed* [Proventil 2.5 mg IH Q4H PRN #1 box 08/21/15 10/11/16 Rx 0.5% NEBS] predniSONE [Deltasone] 40 mg PO QDAY #10 tab 08/21/15 10/11/16 Rx Aspirin [Aspirin TAB] 325 mg PO QDAY #30 tablet 10/12/16 Unknown Rx Metoprolol [Lopressor TAB] 12.5 mg PO BID #30 tablet 10/12/16 Unknown Rx ALBUTEROL Inhaler (OR & NICU) 1 puff IH Q4-6H PRN #1 inha 08/30/17 Unknown Rx [ProAir HFA Inhaler] Amoxicillin/Potassium Clav 1 each PO BID 5 Days #10 tablet 08/30/17 Unknown Rx [Augmentin 875-125 Tablet] Benzonatate [Tessalon Perle] 100 mg PO TID #30 capsule 08/30/17 Unknown Rx Fluticasone [Flonase] 1 spray NS QDAY #1 bottle 08/30/17 Unknown Rx Ipratropium/Albuter (Nf) 2 puff IH QID #1 inha 08/30/17 Unknown Rx [Combivent (Nf)] Metoprolol [Lopressor TAB] 12.5 mg PO BID 30 Days #60 tablet 05/02/18 Unknown Rx Allergies Allergy/AdvReac Type Severity Reaction Status Date / Time lactose Allergy Hives Verified 10/11/16 17:44 shellfish derived Allergy Hives Verified 10/11/16 17:44 Heart Score - HEART Score History: Slightly suspicious EKG: Normal Age: 45-65 Risk factors: > 3 risk factors or hx of atherosclerotic disease Troponin: < normal limit HEART Score: 3 ED Review of Systems ROS: Stated complaint: HBP/CHEST PAIN Other details as noted in HPI Comment: All other systems reviewed and negative Constitutional: malaise. denies: fever Respiratory: denies: cough Cardiovascular: chest pain, palpitations ED Past Medical Hx - Past Medical History Hx Hypertension: Yes Hx Diabetes: Yes (BORDERLINE) Hx Asthma: Yes Additional medical history: Bronchitis - Surgical History Additional Surgical History: PARTIAL HYSTERECTOMY. CYST REMOVED LEFT WRIST. RIGHT LEG - Family History Family history: hypertension - Social History Smoking Status: Never Smoker Substance Use Type: Alcohol Other Social History: Works as a manager landscape in a [employer] - Medications Home Medications: Home Medications Medication Instructions Recorded Confirmed Last Taken Type Benzonatate [Tessalon Perles] 200 mg PO Q8HR PRN #15 capsule 10/28/14 10/12/16 10/11/16 Rx Fluticasone [Flonase] 1 spray NS QDAY #1 bottle 10/28/14 10/12/16 10/11/16 Rx ALBUTEROL Inhaler (OR & NICU) 2 puff IH QID PRN #1 inha 08/21/15 10/12/16 10/11/16 Rx [ProAir HFA Inhaler] Albuterol *Only Ed* [Proventil 2.5 mg IH Q4H PRN #1 box 08/21/15 10/12/16 10/11/16 Rx 0.5% NEBS] predniSONE [Deltasone] 40 mg PO QDAY #10 tab 08/21/15 10/12/16 10/11/16 Rx Aspirin [Aspirin TAB] 325 mg PO QDAY #30 tablet 10/12/16 Unknown Rx Metoprolol [Lopressor TAB] 12.5 mg PO BID #30 tablet 10/12/16 Unknown Rx ALBUTEROL Inhaler (OR & NICU) 1 puff IH Q4-6H PRN #1 inha 08/30/17 Unknown Rx [ProAir HFA Inhaler] Amoxicillin/Potassium Clav 1 each PO BID 5 Days #10 tablet 08/30/17 Unknown Rx [Augmentin 875-125 Tablet] Benzonatate [Tessalon Perle] 100 mg PO TID #30 capsule 08/30/17 Unknown Rx Fluticasone [Flonase] 1 spray NS QDAY #1 bottle 08/30/17 Unknown Rx Ipratropium/Albuter (Nf) 2 puff IH QID #1 inha 08/30/17 Unknown Rx [Combivent (Nf)] Metoprolol [Lopressor TAB] 12.5 mg PO BID 30 Days #60 tablet 05/02/18 Unknown Rx ED Physical Exam - General Limitations: No Limitations General appearance: alert, in no apparent distress - Head Head exam: Present: atraumatic, normocephalic - Eye Eye exam: Present: normal appearance - ENT ENT exam: Present: mucous membranes moist - Neck Neck exam: Present: normal inspection. Absent: tenderness, meningismus - Respiratory Respiratory exam: Present: normal lung sounds bilaterally. Absent: respiratory distress, wheezes, rales, rhonchi - Cardiovascular Cardiovascular Exam: Present: regular rate, normal rhythm, normal heart sounds. Absent: systolic murmur, diastolic murmur, rubs, gallop - GI/Abdominal GI/Abdominal exam: Present: soft, normal bowel sounds. Absent: distended, ten derness, guarding, rebound - Extremities Exam Extremities exam: Present: normal inspection - Back Exam Back exam: Present: normal inspection - Neurological Exam Neurological exam: Present: alert, oriented X3 - Psychiatric Psychiatric exam: Present: normal affect, normal mood - Skin Skin exam: Present: warm, dry, intact, normal color. Absent: rash ED Course Vital Signs 05/02/18 05/02/18 05/02/18 11:49 12:55 13:00 Temperature 98.3 F Pulse Rate 91 H 83 85 Respiratory 18 11 L 12 Rate Blood Pressure 168/105 147/87 147/87 Blood Pressure [Left] O2 Sat by Pulse 98 98 100 Oximetry 05/02/18 05/02/18 05/02/18 13:03 13:15 13:31 Temperature Pulse Rate 83 85 77 Respiratory 18 16 16 Rate Blood Pressure 142/90 142/90 Blood Pressure 142/90 [Left] O2 Sat by Pulse 100 98 99 Oximetry 05/02/18 05/02/18 05/02/18 13:45 14:00 14:15 Temperature Pulse Rate 82 76 84 Respiratory 17 17 17 Rate Blood Pressure 142/90 134/87 134/87 Blood Pressure [Left] O2 Sat by Pulse 96 97 98 Oximetry 05/02/18 05/02/18 05/02/18 14:31 14:45 15:00 Temperature Pulse Rate 68 79 81 Respiratory 15 15 15 Rate Blood Pressure 134/87 134/87 143/88 Blood Pressure [Left] O2 Sat by Pulse 98 98 99 Oximetry MP score - Mp Score Aspirin use within the Past 7 Days: (0) No ED Medical Decision Making - Lab Data Result diagrams: 05/02/18 12:47 05/02/18 12:47 - EKG Data EKG shows normal: sinus rhythm, axis, intervals, QRS complexes, ST-T waves Rate: normal - EKG Data When compared to previous EKG there are: no significant change Interpretation: no acute changes, normal EKG 05/02/18 12:45 Time Obtained 11:46 NSR nl rate nl axis nl intervals no ST-T signs of ischemia no ST elevation rate 85 bpm unchanged from 10/11/2016 - Medical Decision Making Mrs. Wong is a 48-year-old female with history of hypertension and asthma obesity and NSTEMI type 2 with previous normal myocardial perfusion scan. She presents with similar symptoms today. I do not suspect ACS at this time. Normal Troponin. Repeat BP without medication 134/86. She will benefit from Metoprolol. Suspect demand ischemia or vasospasm causing previous NSTEMI type 2. She is currently pain free. Rx: Metoprolol and ASA F/U with Dr. Au next week. Critical care attestation.: If time is entered above; I have spent that time in minutes in the direct care of this critically ill patient, excluding procedure time. ED Disposition Clinical Impression: Hypertensive urgency, Palpitation, Chest pain Disposition: TO HOME OR SELFCARE Is pt being admited?: No Does the pt Need Aspirin: No Condition: Stable Instructions: Chest Pain (ED), Hypertension (ED) Prescriptions: Metoprolol [Lopressor TAB] 12.5 mg PO BID 30 Days #60 tablet
[2018-05-02 12:58] LABS: Basophils # (Auto) 0.1 K/mm3 (0.0-0.1); Basophils % (Auto) 0.9 % (0.0-1.8); Eosinophils # (Auto) 0.2 K/mm3 (0.0-0.4); Eosinophils % (Auto) 2.5 % (0.0-4.3); Hematocrit 39.7 % (30.3-42.9); Hemoglobin 12.9 gm/dl (10.1-14.3); Lymphocytes % (Auto) 27.8 % (13.4-35.0); Mean Corpuscular HGB Conc 33 % (30-34); Mean Corpuscular Volume 81 fl (79-97); Monocytes # (Auto) 0.4 K/mm3 (0.0-0.8); Monocytes % (Auto) 6.2 % (0.0-7.3); Platelet Count 279 K/mm3 (140-440); Red Blood Count 4.91 M/mm3 (3.65-5.03); Red Cell Distribution Width 15.5 % (13.2-15.2)
[2018-05-02 13:15] LABS: BUN/Creatinine Ratio 18; Blood Urea Nitrogen 14 mg/dL (7-17); Hemolysis Index 11
--- NOTE | 2018-05-02 13:35 | XRay Report ---
PA and lateral chest: Chest pain. On the frontal projection there is a nodular appearing density in the lower left hilum and and somewhat inhomogeneous nodular area just lateral to the hilum. These both appear new compared to prior examination in August 2017. The mediastinal and hilar regions otherwise appear unremarkable. The lungs appear normally expanded. In the lateral projection posteriorly there is a linear density that unchanged and may represent a scar. Impression: Left hilar nodularity. These could represent areas of nodular atelectasis. Recommendation: Recommend short-term followup for reevaluation.
--- NOTE | 2018-05-02 23:30 | Consultation ---
REFERRING PHYSICIAN: Jaime Browning MD INDICATION: 1. Chest pain. 2. Abdominal pain. HISTORY OF PRESENT ILLNESS: The patient is a 48-year-old female with a history of hypertension and non-STEMI, now been seen by GI for upper abdominal pain. The patient reports that she has been seen by Dr. Dunn and Dr. Zuñiga in our office. The patient reports she had an EGD and then an ERCP earlier this month with the ERCP be approximately 2 weeks ago. The patient reports since ERCP, she had this intermittent upper abdominal pain with no obvious inciting factor. She reports no nausea, vomiting. Denies any weight loss. She reports actually abdominal pain has been better since being in the Emergency Room and is not her main reason for being in the Emergency Room. She reports some headache. She denies any other specific upper or lower GI symptoms. PAST MEDICAL HISTORY: 1. Hypertension. 2. Coronary artery disease, status post MS. MEDICATIONS: Reviewed in chart and updated. ALLERGIES: No known drug allergies except for LACTOSE. SOCIAL HISTORY: Denies alcohol, tobacco or drug abuse. FAMILY HISTORY: Negative for colon cancer, IBD, or liver disease. REVIEW OF SYSTEMS: GENERAL: Reports mild weakness. HEENT: No visual complaints or tinnitus. PULMONARY: No shortness of breath. No cough. No chest pain. GASTROINTESTINAL: Reports abdominal pain, but now improved. All points of 13-point review of systems otherwise negative. PHYSICAL EXAMINATION: VITAL SIGNS: Temperature of 98.8, pulse 76, respiration 18, blood pressure 134/87. GENERAL: Fairly nourished female, in no acute distress. HEENT: Pupils are round and reactive. PULMONARY: Clear to auscultation bilaterally. CARDIOVASCULAR: Normal S1, S2. ABDOMEN: Positive bowel sounds, soft. SKIN: No obvious rashes. LABORATORY DATA: Pertinent for white count of 7.1, hemoglobin and hematocrit 12.9 and 39.7, platelet count of 279. Chem-7 within normal limits. LFTs within normal limits. ASSESSMENT AND PLAN: A 48-year-old female, who has recently been seen by Dr. Dunn in our office and EGD and ERCP, but ERCP be approximately 2 weeks ago, now presents with atypical like chest pain. The patient reports she has had some fleeting upper abdominal pain since she had the ERCP, but those have now resolved. She reports she also has some nausea, which has been intermittent, but now those are also resolved. She reports only complaint at this time has been some headache. She denies any other specific GI complaints at this time. Management is noted below. PLAN: 1. PPI daily. 2. Avoid NSAIDs and aspirin. 3. Given the patient with no active GI complaints at this time, I see no need for further intervention. The patient is okay to discharge from GI standpoint. 4. If further GI intervention is necessary, Dr. Zuñiga on this weekend, feel free to consult. JOB# [id number] CAB/NTS
[2018-05-04 12:00] VITALS: BP 143/88
== END 2018-05-02 15:35 | disposition home or self-care (01) ==
LOC: ED 11:38
DX: I10 Essential (primary) hypertension (principal); R00.2 Palpitations; R07.9 Chest pain, unspecified; J45.909 Unspecified asthma, uncomplicated
CPT/HCPCS: 36415; 71046; 80048; 84484; 85025; 93005; 93010

== ENCOUNTER 2021-11-26 19:34 | Emergency (ER) | payer OTHER ==
[2021-11-26 21:52] VITALS: BP 168/101
--- NOTE | 2021-11-27 07:56 | Emergency Department Report ---
ED General Adult HPI - General Chief complaint: Headache Stated complaint: COVID+, HTN Time Seen by Provider: 11/27/21 07:41 Source: patient Mode of arrival: Ambulatory Limitations: No Limitations - History of Present Illness Initial comments: 51 yo tested covid pos 2 days ago. Here to be checked. Her bp is increased. She is on lisinopril, norvasc, and hctz. no cp. no sob. Triage vS normal. no fever. no chills no n/v/d ambulatory and non ill appearing - Related Data Previous Rx's Medication Instructions Recorded Last Taken Type Benzonatate [Tessalon Perles] 200 mg PO Q8HR PRN #15 capsule 10/28/14 10/11/16 Rx Fluticasone [Flonase] 1 spray NS QDAY #1 bottle 10/28/14 10/11/16 Rx Albuterol *Only Ed* [Proventil 2.5 mg IH Q4H PRN #1 box 08/21/15 10/11/16 Rx 0.5% NEBS] Albuterol Mdi (or & Nicu Only) 2 puff IH QID PRN #1 inha 08/21/15 10/11/16 Rx [ProAir HFA Inhaler] predniSONE [Deltasone] 40 mg PO QDAY #10 tab 08/21/15 10/11/16 Rx Aspirin 325 mg PO QDAY #30 tablet 10/12/16 Unknown Rx Metoprolol [Lopressor TAB] 12.5 mg PO BID #30 tablet 10/12/16 Unknown Rx Albuterol Mdi (or & Nicu Only) 1 puff IH Q4-6H PRN #1 inha 08/30/17 Unknown Rx [ProAir HFA Inhaler] Amoxicillin/Potassium Clav 1 each PO BID 5 Days #10 tablet 08/30/17 Unknown Rx [Augmentin 875-125 Tablet] Benzonatate [Tessalon Perle] 100 mg PO TID #30 capsule 08/30/17 Unknown Rx Fluticasone [Flonase] 1 spray NS QDAY #1 bottle 08/30/17 Unknown Rx Ipratropium/Albuter (Nf) 2 puff IH QID #1 inha 08/30/17 Unknown Rx [Combivent (Nf)] Metoprolol [Lopressor TAB] 12.5 mg PO BID 30 Days #60 tablet 05/02/18 Unknown Rx Allergies Allergy/AdvReac Type Severity Reaction Status Date / Time lactose Allergy Hives Verified 10/11/16 17:44 shellfish derived Allergy Hives Verified 10/11/16 17:44 ED Review of Systems ROS: Stated complaint: COVID+, HTN Other details as noted in HPI Comment: All other systems reviewed and negative ED Past Medical Hx - Past Medical History Previous Medical History?: Yes Hx Hypertension: Yes Hx Diabetes: Yes (BORDERLINE) Hx Asthma: Yes Additional medical history: Bronchitis - Surgical History Past Surgical History?: Yes Additional Surgical History: PARTIAL HYSTERECTOMY. CYST REMOVED LEFT WRIST - Family History Family history: no significant - Social History Smoking Status: Never Smoker Substance Use Type: Alcohol - Medications Home Medications: Home Medications Medication Instructions Recorded Confirmed Last Taken Type Benzonatate [Tessalon Perles] 200 mg PO Q8HR PRN #15 capsule 10/28/14 10/12/16 10/11/16 Rx Fluticasone [Flonase] 1 spray NS QDAY #1 bottle 10/28/14 10/12/16 10/11/16 Rx Albuterol *Only Ed* [Proventil 2.5 mg IH Q4H PRN #1 box 08/21/15 10/12/16 10/11/16 Rx 0.5% NEBS] Albuterol Mdi (or & Nicu Only) 2 puff IH QID PRN #1 inha 08/21/15 10/12/16 10/11/16 Rx [ProAir HFA Inhaler] predniSONE [Deltasone] 40 mg PO QDAY #10 tab 08/21/15 10/12/16 10/11/16 Rx Aspirin 325 mg PO QDAY #30 tablet 10/12/16 Unknown Rx Metoprolol [Lopressor TAB] 12.5 mg PO BID #30 tablet 10/12/16 Unknown Rx Albuterol Mdi (or & Nicu Only) 1 puff IH Q4-6H PRN #1 inha 08/30/17 Unknown Rx [ProAir HFA Inhaler] Amoxicillin/Potassium Clav 1 each PO BID 5 Days #10 tablet 08/30/17 Unknown Rx [Augmentin 875-125 Tablet] Benzonatate [Tessalon Perle] 100 mg PO TID #30 capsule 08/30/17 Unknown Rx Fluticasone [Flonase] 1 spray NS QDAY #1 bottle 08/30/17 Unknown Rx Ipratropium/Albuter (Nf) 2 puff IH QID #1 inha 08/30/17 Unknown Rx [Combivent (Nf)] Metoprolol [Lopressor TAB] 12.5 mg PO BID 30 Days #60 tablet 05/02/18 Unknown Rx ED Physical Exam - General Limitations: No Limitations General appearance: alert, in no apparent distress - Head Head exam: Present: atraumatic, normocephalic - Eye Eye exam: Present: normal appearance - ENT ENT exam: Present: mucous membranes moist - Neck Neck exam: Present: normal inspection - Respiratory Respiratory exam: Present: normal lung sounds bilaterally. Absent: respiratory distress - Cardiovascular Cardiovascular Exam: Present: regular rate, normal rhythm. Absent: systolic murmur, diastolic murmur, rubs, gallop - GI/Abdominal GI/Abdominal exam: Present: soft, normal bowel sounds - Extremities Exam Extremities exam: Present: normal inspection - Back Exam Back exam: Present: normal inspection - Neurological Exam Neurological exam: Present: alert, oriented X3 - Psychiatric Psychiatric exam: Present: normal affect, normal mood - Skin Skin exam: Present: warm, dry, intact, normal color. Absent: rash ED Course Vital Signs 11/26/21 21:51 Temperature 98.7 F Pulse Rate 77 Respiratory 18 Rate Blood Pressure 168/101 O2 Sat by Pulse 91 Oximetry ED Medical Decision Making - Medical Decision Making Vital Signs 11/26/21 21:51 Temperature 98.7 F Pulse Rate 77 Respiratory 18 Rate Blood Pressure 168/101 O2 Sat by Pulse 91 Oximetry nursing to check bp- pt got tired of waiting and left at 0730 - Differential Diagnosis covid Critical care attestation.: If time is entered above; I have spent that time in minutes in the direct care of this critically ill patient, excluding procedure time. ED Disposition Clinical Impression: Hypertension, COVID Disposition: 07 LEFT AWOL/ELOPED Is pt being admited?: No Does the pt Need Aspirin: No Condition: Stable Instructions: Hypertension (ED) Additional Instructions: over the counter symptom relief for covid symptoms see pcp in 48 hours for recheck avoid meds that are going to inc your bp- see pharmacist for help motrin or tylenol for pain low fat low salt diet take daily meds as scheduled Referrals: PRIMARY CARE, [Primary Care Provider] - 3-5 Days JIA IBARRA MD [Staff Physician] - 3-5 Days Forms: Work/School Release Form(ED) Time of Disposition: 08:21
== END 2021-11-27 10:01 | disposition left against medical advice (07) ==
LOC: ED 19:34
DX: U07.1 COVID-19 (principal); I10 Essential (primary) hypertension; E11.9 Type 2 diabetes mellitus without complications; J45.909 Unspecified asthma, uncomplicated; Z79.899 Other long term (current) drug therapy; Z90.710 Acquired absence of both cervix and uterus; Z72.89 Other problems related to lifestyle; Z88.8 Allergy status to other drugs, medicaments and biological substances; Z91.013 Allergy to seafood
CPT/HCPCS: 99281